=== PATIENT | male | born 1955 | race Hispanic/Latino ===

== ENCOUNTER → 2019-08-10 | Outpatient (CLI) | payer MEDICARE ==
[~2019-08-10] VITALS: Ht 168.9 cm; Wt 75.2 kg
[~2019-08-10] MED LIST: ACET-66 PO; ASPI-555 PO; ATOR40TA71 PO; GLIP5TAB11 PO; HYDR-2132 PO; INSU100V12 SQ; ISOS60TA4 PO; METOPROLOL; MYCO250C36 PO; NITR0.4T50 SL; OMEP40CA13 PO; PANT40TA25 PO; RANO500T2 PO; TACR1CAP18 PO; VICODIN PO; WARF2.5T47 PO
[2019-08-10 09:15] VITALS: BP 107/49
[2019-08-10 09:31] LABS: BASOPHILS % (AUTO) 0.5 % (0.0-5.0); HEMATOCRIT 24.6 % (42-54); LYMPHOCYTES % (AUTO) 19.6 % (21.0-51.0); MEAN CORPUSCULAR HEMOGLOBIN 28.2 pg (27.0-33.0); MEAN CORPUSCULAR HGB CONC 31.3 g/dL (32.0-36.0); MEAN CORPUSCULAR VOLUME 90.1 fL (79-99); MONOCYTES % (AUTO) 7.1 % (3.0-13.0); NEUTROPHILS % (AUTO) 61.9 % (40.0-77.0); PLATELET COUNT (AUTO) 210 K/uL (130-400); RED BLOOD CELL COUNT(AUTO) 2.73 MIL/uL (4.50-6.20); RED CELL DISTRIBUTION WIDTH 14.9 % (11.0-15.5); WHITE BLOOD COUNT (AUTO) 5.6 K/uL (4.8-10.8)
[2019-08-10 09:42] LABS: POTASSIUM 5.6 mmol/L (3.5-5.1)
[2019-08-10 09:44] LABS: CREATININE 14.9 mg/dL (0.5-1.5)
[2019-08-10 09:49] LABS: INR 1.22 (0.85-1.15); PARTIAL THROMBOPLASTIN TIME 38.2 SEC (26.3-35.5); PROTHROMBIN TIME 12.7 SEC (9.6-11.6)
--- NOTE | 2019-08-11 14:26 | NUR ---
SPOKE TO RJ CANALES AND ADVISED HIM PT POTASSIUM LEVEL 5.6, H/H 7.6/24.6, SCHOOL AIDE 14.9, BUN 69, CA 7.5, GFR 4, NA 132, AND PT/INR 12.7/1.22, NEW ORDER TO CALL IN FOR KAYEXALATE 15GM TIMES ONE TIME PO , ADVISED PT OF NEW ORDER AND PER RJ MITCHELL HE WOULD CALL BACK WITH ANY ORDERS IN REGARDS TO THE HEMOGLOBIN LEVEL. PENDING CALL BACK
--- NOTE | 2019-08-11 17:16 | NUR ---
ALLY BRANTLEY FOR DR. BARNHART TO FOLLOW UP ON ORDERS FOR LOW H/H LEVEL AT 1700. NO CALL BACK. CALLED HIM AT 1715, NO ANSWER.
--- NOTE | 2019-08-11 17:30 | NUR ---
CALL BACK FROM [facility]. PER JACINDA, CANCEL PROCEDURE TOMORROW DUE TO LOW H/H, TO CALL AND INSTRUCT PT TO FOLLOW UP WITH HIS PCP TO TREAT ANEMIA. SPOKE TO PT AND INFORMED HIM THAT PROCEDURE IS CANCELLED DUE TO ANEMIA AND INSTRUCTED HIM TO SEE HIS PCP FOR TREATMENT. PT VERBALIZED UNDERSTANDING. LOLI BOOTH NOTIFIED OF CANCELLATION BY ARIEL FIGUEROA, [employer] PHOTOVOLTAIC INSTALLATION TECHNICIAN.
== END ==
LOC: EDSTATUS 08:00 → DAH 10:00 → EDSTATUS 08-12 08:00
PROVIDERS: ATTEND Internal Medicine Cardiovascular Disease
DX: Z01.818 Encounter for other preprocedural examination (principal); I20.9 Angina pectoris, unspecified; Z79.82 Long term (current) use of aspirin; Z79.899 Other long term (current) drug therapy; Z87.891 Personal history of nicotine dependence; Z94.0 Kidney transplant status; Z82.49 Family history of ischemic heart disease and other diseases of the circulatory system; Z82.3 Family history of stroke
CPT/HCPCS: 36415; 71045; 80048; 85025; 85610; 85730; 93005